=== PATIENT | male | born 1960 | race Caucasian/White ===

== ENCOUNTER → 2019-10-22 11:00 | Outpatient (CLI) | payer SELFPAY ==
--- NOTE | 2019-10-23 22:45 | HP.PCM_ITS ---
History and Physical History and Physical [facility] [place] Patient Name: Danny PuckettOB: 1960 From: NELDA STOVER PA-C DATE OF SURGERY: 11/05/2019 SCHEDULED PROCEDURE: 1. Right total hip arthroplasty 2. Left total hip arthroplasty HISTORY OF PRESENT ILLNESS: Preoperative history and physical exam was performed on October 23, 2019. This is a 59-year-old male who has had ongoing pain in bilateral hips for over one year. Pain is recently increased in May 2019. Patient states he has increased pain with going up and down stairs, walking, sitting, and driving. He does have start up pain. Pain can reach as high as a 7/10 with activity. Patient has difficult time getting in and out of chairs due to the pain in the hips. Pain is located in the anterior thigh, buttock with some radiating down the leg. He has difficult time with putting on his socks and shoes. He has tried conservative measures consisting of rest, ice, elevation with no relief in symptoms. He has attempted physician assistant primary care, [id number] ibuprofen with minimal relief. Patient does feel the right hip is slightly worse than the left hip. There was no trauma or injury in the past. Patient works as an occupational therapist. Patient denies any recent fevers, chills, infections, shortness of breath, or chest pain. We are obtaining surgical clearance from the primary care physician Dr. Doll. Patient has medical history pertinent for hypertension. After failing conservative measures and discussing treatment options with Dr. Joshua Bustamante, the patient does wish to proceed with a bilateral total hip arthroplasty. REVIEW OF SYSTEMS: ROS: Const: Denies change in appetite, fever and weight change. CV: Denies chest pain, heart murmur and irregular heartbeat. Resp: Denies cough, pneumonia, shortness of breath, tuberculosis and wheezing. GI: Denies constipation, diarrhea, heartburn, nausea, rectal itching, bloody stools and vomiting. : Denies incontinence. Musculo: Reports trouble walking, but denies leg swelling, pain and weakness. Skin: Denies Raynaud's, history of shingles and tattoo. Neuro: Denies ambulatory dysfunction, dizziness, numbness/tingling and tremor. Psych: Denies anxiety, insomnia and stress. Nba/Lymph: Denies anemia, bleeding/bruising tendency and past transfusion. Reviewed, no changes. PAST MEDICAL HISTORY: Advance Care Plan: No Advance Directives Effective Date: 07/03/2019 PMH: Medical Problems: Arthritis, High Blood Pressure Accidents: None Surgical Hx: None Anesthesia Complications: None Assistive Devices: Glasses Reviewed, no changes. SOCIAL HISTORY: SH: Marital: .Occupation: Certified Employee Relations Representative.Work Status: Currently Working - [employer].Hand Dominance: Right-handed. Personal Habits: Cigarette Use: Never Smoked Cigarettes.Smokeless Tobacco: Never Used Smokeless Tobacco.E-Cigarette Use: Never used.Alcohol: Occasionally.Drug Use: Denies Use.Enjoy Exercising: Never Exercises. Reviewed, no changes. VITALS: Ht: 69 Wt: 231lb Wt k.782 BMI: 34.1 BP: 162/96 Pulse: 90 Resp: 12 T: 98.0 T: 36.7C ALLERGIES: No Known Drug Allergy MEDICATIONS: Ibuprofen 600 mg 1po qd, Lisinopril 5 mg 2 po qd PRE-OP EXAM: General appearance:NORMAL Other: Eyes: Conjunctivae and lids: NORMAL Pupils: ERR Ears, Nose, Mouth, and Throat: NORMAL Other: Inspection of lips, teeth and gums: NORMAL Other: Neck: Examination of neck: no masses noted. Respiratory: Assessment of respiratory effort: NORMAL Other: Auscultation of lungs: clear to auscultation no wheezes, rhonchi or rales. Cardiovascular: Auscultation of heart: regular rate and rhythm, no murmurs, gallops or rubs. Exam of carotid arteries: NORMAL Other: Gastrointestinal: Exam of abdomen: soft, nontender, nondistended bowel sounds present. PHYSICAL EXAMINATION: Walks with an antalgic gait. Bilateral hips are cool to touch without erythema or signs of infection. Patient has obligatory external rotation with flexion on the right hip. Flexion 40, internal rotation 5, external rotation 20. Left hip flexion 45, internal rotation 10, external rotation 20. Sensation intact to li ght touch. IMAGING STUDIES: X-rays of the right hip reveal joint space narrowing, subchondral sclerosis, osteophyte formation consistent with severe stage IV osteoarthritis with femoral head collapse Series of left hip reveal joint space narrowing, subchondral sclerosis, osteophyte formation consistent with severe stage IV osteoarthritis with femoral head collapse. IMPRESSION: 1. 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 Hypertension PLAN: Dr. Joshua Bustamante did discuss and review with the patient all treatment options including surgical versus nonsurgical options. Patient does wish to proceed with the above-stated procedure. Potential risks, benefits, and complications of the procedure were discussed in detail including but not limited to , infection, nerve and blood vessel damage, persistent pain, numbness, tingling, paresthesias, blood clot, pulmonary embolism, and requirement for possible further surgery. The patient expressed full understanding and has no further questions for the doctor. Patient does agree to proceed with the above-stated procedure and has signed the surgery consent form. We discussed the current risks associated with COVID 19. This does include the risk of exposure while in the hospital. Patient was reassured local hospitals have low infection rates and are taking all necessary precautions to avoid exposure to patients. In addition, we discussed strategies that can be used to help limit exposure including those that limit the patient's time in the hospital. Also using strategies to limit the patient's need for continued inpatient services after being discharged from the hospital. Patient was notified that we will need to comply with any screening or testing the hospital wishes to perform or that surgery may be delayed for any positive results. This dictation was created using voice recognition software. Phonetic and/or grammatical errors may exist. ___ I have re-examined the patient. There are no clinical changes since date of exam. ___ See progress notes for changes. ___ Dictated on admission Date: Time: Signature:
--- NOTE | 2019-10-27 13:03 | EKG12_ITS ---
Test Reason : PREOP Blood Pressure : / mmHG Vent. Rate : 090 BPM Atrial Rate : 090 BPM P-R Int : 166 ms QRS Dur : 090 ms QT Int : 364 ms P-R-T Axes : 069 050 046 degrees QTc Int : 445 ms Normal sinus rhythm Normal ECG Confirmed by NGOZI WILKERSON, MCKINLEY ([id number]), editorial cartoonist REMY MEDEL ([id number]) on 10/28/2019 10:59:07 AM Referred By: DOC Confirmed By:MCKINLEY MELVIN MD
[2019-10-27 13:38] LABS: Absolute Lymphocyte Count 2.66 X10^3/uL (0.83-4.51); Absolute Neutrophil Count 4.5 X10^3/uL (2.0-7.7); Basophil# 0.07 X10^3/uL; Basophil% 0.9 % (0-1); Eosinophil# 0.07 X10^3/uL; Eosinophils% 0.9 % (0-5); Hematocrit 44.8 % (40-54); Hemoglobin 15.4 g/dL (13.0-16.5); Lymphocyte # 2.66 X10^3/ul (4.0); Lymphocyte % 33.5 % (19-41); Mean Corp Hgb Conc 34.4 g/dL (32-36); Mean Corpuscular Hgb 30.6 pg (27.0-32.0); Mean Corpuscular Volume 88.9 fL (80-94); Mean Platelet Vol. 9.7 fl (6.2-12.0); Monocyte# 0.66 X10^3/uL; Monocyte% 8.3 % (0-10); NRBC Flagged by Analyzer 0 % (0-5); Neutrophil # 4.46 X10^3/uL (2.7-7.7); Neutrophil % 56.3 % (47-70); Platelet Count 275 K/mm3 (150-450); RBC Distribution Width SD 38.9 fl (35.1-43.9); Red Blood Count 5.04 M/mm3 (4.6-6.2); White Blood Count 7.9 K/mm3 (4.4-11.0)
[2019-10-27 13:53] LABS: Anion Gap 8 (5-15); BUN 35 mg/dL (7-18); BUN/Creat Ratio 24.6 RATIO (10-20); Calcium,Total 9.8 mg/dL (8.5-10.1); Chloride 103 mmol/L (98-107); Creatinine, Serum 1.42 mg/dL (0.70-1.30); EST Glomerular Filtration Rate 54 mL/min (>60); Est Glom Filt Rate - Afr Amer 66 mL/min (>60); Glucose 263 mg/dL (74-106); Potassium 4.3 mmol/L (3.5-5.1); Sodium Level 136 mmol/L (136-145)
== END ==
PROVIDERS: PCP Nurse Practitioner Family; Visit Provider Specialist
DX: Z01.810 Encounter for preprocedural cardiovascular examination (principal)
CPT/HCPCS: 36415; 80048; 85025; 87077; 87081; 93005

== ENCOUNTER 2022-08-31 16:46 | Inpatient (IN) | payer OTHER, SELFPAY ==
[2022-08-31] VITALS (9 sets, daily range): BP systolic 127–147; BP diastolic 92–106; PULSE 86–111; RESP 15–22; TEMP 36.1–36.8; O2SAT 94–98; BMI 33.0; BMI 32.3
--- NOTE | 2022-08-31 17:12 | EKG12_ITS ---
Test Reason : CP Blood Pressure : / mmHG Vent. Rate : 109 BPM Atrial Rate : 109 BPM P-R Int : 188 ms QRS Dur : 100 ms QT Int : 348 ms P-R-T Axes : 074 034 083 degrees QTc Int : 468 ms Sinus tachycardia Nonspecific ST and T wave abnormality Abnormal ECG Confirmed by JUDY WILKERSON, MAHI ([id number]), assistant editor REMY MEDEL ([id number]) on 09/04/2022 11:44:07 AM Referred By: Confirmed By:ROSINA KIM MD
--- NOTE | 2022-08-31 17:28 | RAD_ITS ---
EXAM: XR CHEST, 1 VIEW CLINICAL INDICATION: chest pain TECHNIQUE: Frontal view of the chest. This report was created using [employer] report generation technology. COMPARISON: None. FINDINGS: LUNGS AND PLEURAL SPACES: Unremarkable. No consolidation or edema. No pneumothorax. No effusion. HEART: Unremarkable. Cardiac silhouette not enlarged. MEDIASTINUM: Central airways and mediastinal contour are unremarkable. BONES/JOINTS: Unremarkable. SOFT TISSUES: Unremarkable. RAD/Chest 1 View (Portable) IMPRESSION: No radiographic evidence of acute cardiopulmonary disease. Electronically Signed: Tre Donovan MD at 17:49 EDT ,
[2022-08-31 17:57] LABS: Absolute Lymphocyte Count 1.27 X10^3/uL (0.83-4.51); Absolute Neutrophil Count 4.3 X10^3/uL (2.0-7.7); Basophil# 0.07 X10^3/uL; Basophil% 1.1 % (0-1); Eosinophil# 0.08 X10^3/uL; Eosinophils% 1.3 % (0-5); Hematocrit 44.6 % (40-54); Hemoglobin 15.7 g/dL (13.0-16.5); Lymphocyte # 1.27 X10^3/ul (0.83-4.51); Lymphocyte % 20.7 % (19-41); Mean Corp Hgb Conc 35.2 g/dL (32-36); Mean Corpuscular Hgb 31.3 pg (27.0-32.0); Mean Platelet Vol. 10.2 fl (6.2-12.0); Monocyte# 0.45 X10^3/uL; Monocyte% 7.3 % (0-10); NRBC Flagged by Analyzer 0 % (0-5); Neutrophil # 4.27 X10^3/uL (2.7-7.7); Neutrophil % 69.4 % (47-70); Platelet Count 198 K/mm3 (150-450); RBC Distribution Width CV 12.1 % (11.6-14.6); RBC Distribution Width SD 39.1 fl (35.1-43.9); Red Blood Count 5.01 M/mm3 (4.6-6.2); White Blood Count 6.2 K/mm3 (4.4-11.0)
[2022-08-31 18:17] LABS: Anion Gap 4 (5-15); BUN 24 mg/dL (7-18); BUN/Creat Ratio 16.6 RATIO (10-20); Calcium,Total 9.4 mg/dL (8.5-10.1); Chloride 104 mmol/L (98-107); Creatinine, Serum 1.45 mg/dL (0.70-1.30); EST Glomerular Filtration Rate 53 mL/min (>60); Est Glom Filt Rate - Afr Amer 64 mL/min (>60); Estimated Creatinine Clearance 55.24 ml/min; Glucose 293 mg/dL (74-106); Potassium 3.9 mmol/L (3.5-5.1); Sodium Level 135 mmol/L (136-145); Troponin-I HS 230 pg/mL (3.0-78.0)
--- NOTE | 2022-08-31 18:26 | CT_ITS ---
STUDY: CTA Chest WO/W Contrast Injection 08/31/2022 7:40 PM REASON FOR EXAM: Male, 62 years old. Chest pain TECHNIQUE: The examination was performed with the intravenous administration of IV 100mL Isovue-370 contrast material. Post-processing of the angiographic images was performed, with axial imaging and 3D reconstruction. MIPS images were obtained. Individualized dose optimization techniques were used for this CT. COMPARISON: None. FINDINGS: There are degenerative changes of the shoulders. There is no pneumothorax. There is no demonstrated pleural abnormality. There are calcifications of the coronary arteries. Normal mediastinum. Normal hilar regions. Normal pulmonary arteries. There is atherosclerotic calcification of the aortic arch with tortuosity and elongation of the aortic arch and descending thoracic aorta. There are multi-level degenerative changes of the thoracic spine. There are no acute findings of the upper abdomen. CT/CTA Chest W/WO Contrast IMPRESSION: There are no acute findings. Electronically Signed: Tre Donovan MD at 19:41 EDT ,
[2022-08-31] MEDS: Aspirin 81 MG TAB.CHEW 324 MG PO (18:35)
[2022-08-31 20:02] LABS: Troponin-I HS 2937 pg/mL (3.0-78.0)
--- NOTE | 2022-08-31 20:10 | EDS_ITS ---
HPI History of Present Illness Chief Complaint: Chest Pain Onset/Context/Timing Onset: Today Activity at onset: sudden and exertion Timing: Continuous Quality: Positive for Heaviness, Sharp and Stabbing Location: Substernal Worsened By: Exertion Relieved By: - (Relaxation, deep breathing) Associated Symptoms: Positive for Dyspnea, Lightheadedness and Palpitations; Negative for Nausea, Vomiting, Diaphoresis, Cough, Fever or Acid Reflux Narrative Narrative: Patient presents with chest pain that began today approximately 2-1/2 hours prior to arrival. Patient states it came on rather suddenly. Patient states it has been constant. Patient describes it as sharp and stabbing but heavy at times. Patient states it is over the substernal area. Patient states it is worse with exertion. Patient states that he is able to try and relax and take some deep breaths which helps with the pain. Patient admits to some slight shortness of breath and lightheadedness with this. Patient also admits to some palpitations where he feels like his heart is racing. CVD Risk Factors: Positive for Hypertension, Diabetes and Family History 1' </=55; Negative for Hypercholesterolemia or Smoking PE Risk Factors: Negative for Recent Travel/Surgery, Recent Immobilization, Prior DVT or PE, Cancer or OCP + Smoking + >/=35 [facility] Medical History Hypertension Type 2 diabetes mellitus Home Medications Cholecalciferol (Vitamin D3) [Vitamin D3] 5,000 unit PO DAILY supplement 10/22/19 [History Last Taken 08/31/22] ascorbic acid (vitamin C) 500 mg tablet,extended release 2,000 mg PO DAILY supplement 10/22/19 [History Last Taken 08/31/22] lisinopril 10 mg tablet 10 mg PO DAILY bp 10/22/19 [History Last Taken 08/31/22] multivitamin with minerals 1 ea PO DAILY supplement 10/22/19 [History Last Taken 08/31/22] omega 9-tgy-hmm-fish oil 300 mg-1,000 mg capsule 2 ea PO DAILY supplement 10/22/19 [History Last Taken 08/31/22] turmeric root extract 500 mg capsule 1,000 mg PO DAILY supplement 10/22/19 [History Last Taken 08/31/22] aspirin 81 mg tablet,delayed release 81 mg PO DAILY HEART HEALTH 08/31/22 [History Last Taken 08/31/22] cimetidine 200 mg tablet (Tagamet HB) 200 mg PO DAILY 08/31/22 [History Last Taken 08/31/22] Allergy/AdvReac Type Severity Reaction Status Date / Time No Known Allergies Allergy Verified 08/31/22 16:57 Surgical History History of hip replacement Social History Smoking Status: Never smoker ROS ROS ED Constitutional Constitutional ED: Denies chills or fever(s) Eyes Eyes: Denies blurry vision or change in vision ENT ENT ED: Denies rhinorrhea or sore throat Cardiovascular Cardiovascular: Reports chest pain and palpitations Respiratory/Chest Respiratory/Chest: Reports dyspnea; Denies cough Gastrointestinal Gastrointestinal: Denies abdominal pain, nausea or vomiting Genitourinary Genitourinary ED: Denies dysuria or hematuria Musculoskeletal Musculoskeletal: Reports back pain; Denies neck pain Integumentary Denies abscess or rash Neurologic Neurologic: Denies headache(s) or weakness Allergic/Immunologic Allergic/Immunologic ED: Denies mouth swelling or urticaria EXAM Physical Exam Const Vital Signs: 08/31/22 16:47 08/31/22 17:00 08/31/22 17:03 Temperature 97 F L Temperature Source Temporal Pulse Rate 109 H 111 H Respiratory Rate 18 18 Respiratory Effort Normal Non-Labored Blood Pressure 147/94 H 146/93 H Blood Pressure Mean 111 110 Pulse Ox 98 97 Oxygen Delivery Method Room Air Room Air 08/31/22 17:25 08/31/22 18:00 08/31/22 19:11 Temperature Temperature Source Pulse Rate 94 94 Respiratory Rate 22 H 15 Respiratory Effort Blood Pressure 127/93 H 143/106 H Blood Pressure Mean 104 118 Pulse Ox 94 96 Oxygen Delivery Method Room Air Room Air Room Air 08/31/22 20:08 Temperature Temperature Source Pulse Rate 93 Respiratory Rate 22 H Respiratory Effort Blood Pressure 138/92 H Blood Pressure Mean 107 Pulse Ox 97 Oxygen Delivery Method Room Air Positive well nourished, well developed and obese General Appearance ED: well developed and NAD Nutritional Appearance: obese HEENT normocephalic and atraumatic Eyes PERRL and EOMs intact bilaterally Neck supple and no JVD Chest Wall palpation of chest normal Resp normal respiratory effort and clear to auscultation bilaterally Effort and Inspection: Negative for respiratory distress Cardio regular rate, regular rhythm and no murmurs GI normal to inspection, nondistended, normoactive bowel sounds, soft to palpation, non-tender and non-distended Extremity normal to inspection General Extremety ED: Negative for edema or tenderness General Extremity: Negative for edema Neuro oriented x3, CN's II-XII intact bilaterally and no sensory deficits noted Sensorium / Orientation: awake and alert Motor Exam: strength 5/5 throughout Psych mental status grossly normal Heart Score History: Moderately Suspicious ECG: Nonspecific Repolarization Age: >45 - <65 years Risk Factors: >/= 3 Risk Factors or History of CAD Troponin: >/=3 x Normal Limit Score: 7 MDM MDM MDM Narrative Medical decision making narrative: Differential diagnosis includes cardiac dysrhythmia, cardiac ischemia, pneumonia, pneumothorax, pulmonary embolism, electrolyte abnormality, and musculoskeletal pain. EKG will be obtained to assess for cardiac dysrhythmia and cardiac ischemia. Chest x-ray will be obtained to assess for pneumonia and pneumothorax. CBC will be obtained to assess for leukocytosis and anemia. Basic metabolic profile will be obtained to assess for electrolyte abnormality and renal function. High-sensitivity troponin will be obtained to assess for cardiac ischemia. 2-hour repeat high-sensitivity troponin will be obtained to assess for ongoing cardiac ischemia. CTA of the chest will be obtained to assess for pulmonary embolism. Lab Data Attestation: I reviewed the patient's lab results. Labs: Laboratory Results - last 24 hr 08/31/22 08/31/22 08/31/22 17:12 17:12 19:24 WBC 6.2 RBC 5.01 Hgb 15.7 Hct 44.6 MCV 89.0 MCH 31.3 MCHC 35.2 RDW Std Deviation 39.1 RDW Coeff of Allen 12.1 Plt Count 198 MPV 10.2 Immature Gran % (Auto) 0.200 Neut % (Auto) 69.4 Lymph % (Auto) 20.7 [place] % (Auto) 7.3 Eos % (Auto) 1.3 Baso % (Auto) 1.1 H Absolute Neuts (auto) 4.3 Absolute Lymphs (auto) 1.27 Nucleated RBC % 0 Sodium 135 L Potassium 3.9 Chloride 104 Carbon Dioxide 27.0 Anion Gap 4 L BUN 24 H Creatinine 1.45 H Estim Creat Clear Calc 55.24 Est GFR (MDRD) Af Amer 64 Est GFR (MDRD) Non-Af 53 L BUN/Creatinine Ratio 16.6 Glucose 293 H Calcium 9.4 Troponin I High Sens 230 H* 2937 H* Radiography Diagnostic Testing: Clinical Impression(s) from Imaging Studies Chest X-Ray 08/31/22 17:28 IMPRESSION: No radiographic evidence of acute cardiopulmonary disease. Electronically Signed: Tre Donovan MD at 17:49 EDT , Chest CTA 08/31/22 18:26 IMPRESSION: There are no acute findings. Electronically Signed: Tre Donovan MD at 19:41 EDT , EKG Initial EKG: Attestation: I personally reviewed and interpreted this EKG as follows: Interpretation: Sinus Tachycardia (109) and Non-Specific ST Changes Comments: EKG was obtained. On my independent interpretation, it showed a sinus tachycardia with a rate of 109. AK interval, QRS interval, and QTc intervals were all normal. Moran was normal. There are nonspecific ST-T wave changes in the lateral leads. Prior EKG tracings: available for review Prior: Changed (Compared to previous EKG dated 10/27/2019, the nonspecific ST-T wave changes in the lateral leads are new.) Follow-up EKG: Attestation: I personally reviewed and interpreted this EKG as follows: Interpretation: Sinus Rhythm (86) and No Acute Injury Pattern Prior EKG tracings: available for review Prior: Changed (Compared to previous EKG earlier today, the nonspecific ST-T wave changes have resolved.) Treatment and Re-Evaluation :: Patient was given aspirin. Patient is feeling better on reevaluation. Patient was advised of his findings. Patient was advised of the need for hospita lization. Patient was advised that he would need to be started on a heparin drip. Patient is agreeable with all of this. Case was discussed with the hospitalist. He will admit the patient to his service. Patient understood and was agreeable with the plan. All questions were answered. Critical Care Time Critical Care Time: Yes Critical care time (excluding procedures): 30-74 minutes (33), Including time spent:, Discussing w/Patient &/or Family/Natural Remedy Consultant, Arranging Admission or Transfer and Performing Direct Patient Care at Bedside Discharge Plan Dx/Rx/DC Orders Clinical Impression: Non-STEMI (non-ST elevated myocardial infarction), Hypertension Disposition Disposition: Acute Care Hospital [facility]
--- NOTE | 2022-08-31 20:15 | EKG12_ITS ---
Test Reason : DYSRHYTHMIA Blood Pressure : / mmHG Vent. Rate : 086 BPM Atrial Rate : 086 BPM P-R Int : 182 ms QRS Dur : 096 ms QT Int : 374 ms P-R-T Axes : 056 014 087 degrees QTc Int : 447 ms Normal sinus rhythm Normal ECG Confirmed by JUDY WILKERSON, MAHI ([id number]), technical writer and editor REMY MEDEL ([id number]) on 09/04/2022 11:44:22 AM Referred By: AGNIESZKA Confirmed By:ROSINA KIM MD
--- NOTE | 2022-08-31 20:15 | HP.PCM.HOS_ITS ---
HPI - General General Date of Admission: 08/31/22 Date of Service: 08/31/22 Chief Complaint: Chest pain HPI Narrative SHAY OSBORNE, is a 62 M with a significant history of hypertension; diabetes mellitus; and hyperlipidemia who presents to the emergency department with sudden onset excruciating substernal chest pain. His pain severity was 8 or 9 on a scale of 1-10. He described the pain as sharp and burning. The pain worsens with exertion and improved with relaxation and concentrating on his breathing. The pain was non radiating. Associated with symptoms is lightheadedness and difficulty breathing. Patient called his and then paramedics were called. When paramedics arrived his blood pressure was about 180/114. Paramedics gave him oxygen. Subsequently patient came to the hospital with his and not the paramedics. His pain gradually improved to a mild pressure. Patient reported that his brother had a heart attack when the brother was age 55 and required a stent. Of note 3 weeks ago patient had what he thought was indigestion. He changed food and resumed taking Tagamet which he had taken many years ago and he began to feel better. FORMERLY [facility] Medical History Hypertension Type 2 diabetes mellitus Home Medications Cholecalciferol (Vitamin D3) [Vitamin D3] 5,000 unit PO DAILY supplement 10/22/19 [History Last Taken 08/31/22] ascorbic acid (vitamin C) 500 mg tablet,extended release 2,000 mg PO DAILY supplement 10/22/19 [History Last Taken 08/31/22] lisinopril 10 mg tablet 10 mg PO DAILY bp 10/22/19 [History Last Taken 08/31/22] multivitamin with minerals 1 ea PO DAILY supplement 10/22/19 [History Last Taken 08/31/22] omega 2-czn-kqp-fish oil 300 mg-1,000 mg capsule 2 ea PO DAILY supplement 10/22/19 [History Last Taken 08/31/22] turmeric root extract 500 mg capsule 1,000 mg PO DAILY supplement 10/22/19 [History Last Taken 08/31/22] aspirin 81 mg tablet,delayed release 81 mg PO DAILY HEART HEALTH 08/31/22 [History Last Taken 08/31/22] cimetidine 200 mg tablet (Tagamet HB) 200 mg PO DAILY 08/31/22 [History Last Taken 08/31/22] Allergy/AdvReac Type Severity Reaction Status Date / Time No Known Allergies Allergy Verified 08/31/22 16:57 Family History (Updated 08/31/22 @ 20:[address] Christ Choi MD) Other Diabetes Heart disease Surgical History History of hip replacement Social History Smoking Status: Never smoker ROS ROS Narrative Pertinent positives and pertinent negatives as noted in HPI. All other systems were reviewed and are negative Vital Signs Vital Signs Vital Signs: 08/31/22 16:47 08/31/22 17:00 08/31/22 17:03 Temperature 97 F L Temperature Source Temporal Pulse Rate 109 H 111 H Respiratory Rate 18 18 Respiratory Effort Normal Non-Labored Blood Pressure 147/94 H 146/93 H Blood Pressure Mean 111 110 Pulse Ox 98 97 Oxygen Delivery Method Room Air Room Air 08/31/22 17:25 08/31/22 18:00 08/31/22 19:11 Temperature Temperature Source Pulse Rate 94 94 Respiratory Rate 22 H 15 Respiratory Effort Blood Pressure 127/93 H 143/106 H Blood Pressure Mean 104 118 Pulse Ox 94 96 Oxygen Delivery Method Room Air Room Air Room Air 08/31/22 20:08 Temperature Temperature Source Pulse Rate 93 Respiratory Rate 22 H Respiratory Effort Blood Pressure 138/92 H Blood Pressure Mean 107 Pulse Ox 97 Oxygen Delivery Method Room Air Weight Weight: 104.6 kg Body Mass Index (BMI) 33.0 Physical Exam Narrative Physical exam: General: Well-nourished, well-developed. Head: Normocephalic, atraumatic, no tenderness Eyes: Vision is grossly intact. EOMI ENT, no trauma, moist mucous membranes, no rhinorrhea Neck: Nontender, No thyromegaly. CVS: Regular rate and rhythm. S1-S2 present. No murmur, gallop or rub. Respiratory : clear to auscultation bilaterally, chest wall nontender Abdomen: Soft, nontender, nondistended, normal bowel sounds, no masses : Deferred Back: Nontender, no CVA tenderness, no midline spinal tenderness, deformities, step-offs Extremities: Nontender full range of motion, no trauma Skin: Normal color, no trauma, abrasions Neuro: Alert, oriented, cranial nerves II through XII grossly intact. Psychiatry: Normal mood. Normal affect. Not depressed. Not anxious. Results Lab / Micro Data Result Diagrams: 08/31/22 17:12 08/31/22 17:12 Labs: Laboratory Results - last 24 hr 08/31/22 17:12: WBC 6.2, RBC 5.01, Hgb 15.7, Hct 44.6, MCV 89.0, MCH 31.3, MCHC 35.2, RDW Std Deviation 39.1, RDW Coeff of Allen 12.1, Plt Count 198, MPV 10.2, Immature Gran % (Auto) 0.200, Neut % (Auto) 69.4, Lymph % (Auto) 20.7, [place] % (Auto) 7.3, Eos % (Auto) 1.3, Baso % (Auto) 1.1 H, Absolute Neuts (auto) 4.3, Absolute Lymphs (auto) 1.27, Nucleated RBC % 0 08/31/22 17:12: Sodium 135 L, Potassium 3.9, Chloride 104, Carbon Dioxide 27.0, Anion Gap 4 L, BUN 24 H, Creatinine 1.45 H, Estim Creat Clear Calc 55.24, Est GFR (MDRD) Af Amer 64, Est GFR (MDRD) Non-Af 53 L, BUN/Creatinine Ratio 16.6, Glucose 293 H, Calcium 9.4, Troponin I High Sens 230 H* 08/31/22 19:24: Troponin I High Sens 2937 H* Radiology Impression Chest X-Ray 08/31/22 17:28 IMPRESSION: No radiographic evidence of acute cardiopulmonary disease. Electronically Signed: Tre Donovan MD at 17:49 EDT , Chest CTA 08/31/22 18:26 IMPRESSION: There are no acute findings. Electronically Signed: Tre Donovan MD at 19:41 EDT , Assessment & Plan Assessment/Plan (1) Non-STEMI (non-ST elevated myocardial infarction): (2) Hypertension: (3) Diabetes: (4) HLD (hyperlipidemia): PLAN: Plan NSTEMI On presentation patient had chest pain. Initial high-sensitivity troponin was 230. It trended to 2,937. Continue to trend. Place on a monitored bed at progressive care unit Actual CXR image was independently visualized. No acute cardiopulmonary process was noted. Agrees with radiologist interpretation. Chest CTA showed no acute findings. Actual EKG tracing was independently visualized. EKG tracing initially showed ST depressions in leads aVL, I, V5 and V6 that was new from previous. Repeat EKG showed T depressions. Received full dose aspirin on presentation. ASA 81 mg p.o. daily continued. SL NTG 0.4 mg prn as needed for chest pain ordered Anticoagulation: Started on heparin bolus and drip at emergency department and continued. Stat EKG as needed for chest pain Cardiology consult. Hypertension Blood pressure is not within goal Lisinopril continued. In the setting of ACS metoprolol ordered. Trend blood pressure and adjust blood pressure medications. Diabetes mellitus Patient with hyperglycemia on presentation Reportedly he was previously on metformin and one other antidiabetic medications but now his only use diet to control his diabetes. While in the hospital on monitor Accu-Cheks Correction scale insulin ordered. Hyperlipidemia Reports history of hyperlipidemia but intolerance to statin with leg weakness and aching for which reason statin was stopped. Discussed patient that we will check lipid panel and if lipid is still elevated he should consider Zetia. Lipid panel ordered. CKD stage II Stable Trend BMP. Hyponatremia Mild Trend. DVT prophylaxis: Not indicated as patient has been started on heparin drip for non-STEMI Charges/Coding Visit Charges Inpatient E&M: 69321 Init Hosp L3
[2022-08-31] MEDS: HEPARIN/D5w 25,000 UNITS 25,000 UNITS/250 ML IV.SOLN. 15 UNITS CONT INF (20:30)
[2022-08-31] MEDS: Heparin Injection (Vial) 5,000 UNIT/ML VIAL 8000 UNIT IV (20:30)
[2022-08-31 20:42] LABS: Prothrombin Time (Protime)PT. 12.4 SECONDS (11.7-14.9)
[2022-08-31 20:43] LABS: Partial Thromboplast Time 28.2 Seconds (24.1-36.2)
--- NOTE | 2022-08-31 21:02 | EKG12_ITS ---
Test Reason : AM EKG Blood Pressure : / mmHG Vent. Rate : 075 BPM Atrial Rate : 075 BPM P-R Int : 192 ms QRS Dur : 094 ms QT Int : 416 ms P-R-T Axes : 035 030 117 degrees QTc Int : 464 ms Normal sinus rhythm Nonspecific T wave abnormality Prolonged QT Abnormal ECG When compared with ECG of 31-AUG-2022 21:41, MANUAL COMPARISON REQUIRED, DATA IS UNCONFIRMED Confirmed by JUDY WILKERSON, MAHI ([id number]), mapping editor REMY MEDEL ([id number]) on 09/04/2022 11:50:26 AM Referred By: Steph Confirmed By:ROSINA KIM MD
--- NOTE | 2022-08-31 21:13 | ED.RN ---
THIS RN TOOK PT TO PCU. HEPARIN DRIP CHECKED WITH PRATEEK STEWART AT THE BEDSIDE. HEPARIN RUNNING AT 15 ML/HR. IV SITE INTACT, PATENT, RUNNING.
[2022-08-31] MEDS: 0.9% Normal Saline 1,000 ML 75 ML IV (21:41)
[2022-08-31] MEDS: Insulin Lispro 100 UNIT/ML INSULN.PEN SC (21:42)
[2022-08-31] MEDS: Metoprolol Tartrate 25 MG Tablet 12.5 MG PO (21:43)
[2022-08-31 23:10] LABS: Bedside Glucose 167 mg/dL (74-106)
[2022-08-31 23:56] LABS: Troponin-I HS 7075 pg/mL (3.0-78.0)
[2022-09-01] VITALS (12 sets, daily range): BP systolic 104–155; BP diastolic 65–95; PULSE 68–91; RESP 16–20; TEMP 36.3–36.7; O2SAT 93–98
[2022-09-01 02:39] LABS: Absolute Lymphocyte Count 2.25 X10^3/uL (0.83-4.51); Absolute Neutrophil Count 4.4 X10^3/uL (2.0-7.7); Basophil# 0.08 X10^3/uL; Basophil% 1.1 % (0-1); Eosinophil# 0.18 X10^3/uL; Eosinophils% 2.4 % (0-5); Hemoglobin 14.8 g/dL (13.0-16.5); Lymphocyte # 2.25 X10^3/ul (0.83-4.51); Lymphocyte % 29.6 % (19-41); Mean Corp Hgb Conc 34.4 g/dL (32-36); Mean Corpuscular Hgb 30.7 pg (27.0-32.0); Mean Corpuscular Volume 89.2 fL (80-94); Mean Platelet Vol. 9.2 fl (6.2-12.0); Monocyte# 0.66 X10^3/uL; Monocyte% 8.7 % (0-10); NRBC Flagged by Analyzer 0 % (0-5); Neutrophil # 4.41 X10^3/uL (2.7-7.7); Neutrophil % 58.1 % (47-70); Platelet Count 211 K/mm3 (150-450); RBC Distribution Width CV 12.3 % (11.6-14.6); Red Blood Count 4.82 M/mm3 (4.6-6.2); White Blood Count 7.6 K/mm3 (4.4-11.0)
[2022-09-01 03:34] LABS: Partial Thromboplast Time 199.1 Seconds (24.1-36.2)
[2022-09-01 04:21] LABS: Anion Gap 5 (5-15); BUN 20 mg/dL (7-18); BUN/Creat Ratio 18.9 RATIO (10-20); Calcium,Total 9.3 mg/dL (8.5-10.1); Chloride 107 mmol/L (98-107); Cholesterol 183 mg/dL (200); Creatinine, Serum 1.06 mg/dL (0.70-1.30); EST Glomerular Filtration Rate 75 mL/min (>60); Est Glom Filt Rate - Afr Amer 91 mL/min (>60); Estimated Creatinine Clearance 75.56 ml/min; Glucose 189 mg/dL (74-106); High Density Lipoprotein 55 mg/dL; Sodium Level 137 mmol/L (136-145); Triglycerides 126 mg/dL; Very Low Density Lipoprotein 25 mg/dL (5-40)
--- NOTE | 2022-09-01 05:55 | ECHOCS_ITS ---
Reason For Study: chest pain Procedure This was a 2D Doppler, Color Flow transthoracic echocardiogram. The study was technically difficult. Contrast injection was performed. Exam performed portable in patient room. Left Ventricle Normal LV size. Left ventricular systolic function is lower limits of normal. The estimated ejection fraction is 45 %. Anterior Wren : Hypokinetic. Mid-Inferior: Severely Hypokinetic. Right Ventricle Normal RV size. Normal systolic function. Atria Normal left atrium. Normal right atrium. Mitral Valve Normal mitral valve. Tricuspid Valve Normal tricuspid valve. Aortic Valve Trisinus/trileaflet aortic valve. Pulmonic Valve Normal pulmonic valve. Great Vessels Normal aortic root. The pulmonary artery is normal size. Normal inferior vena cava. Pericardium/Pleural No pericardial effusion. Medication Diluted definity 2ml given slow IV push to enhance endocardial definition. MMode/2D Measurements & Calculations LVIDd: 5.4 cm IVSd: 0.96 cm Ao root diam: 3.3 cm LVIDs: 4.6 cm LVPWd: 0.95 cm FS: 13.4 % LAV(MOD-bp): 30.4 ml LVAd ap4: 35.5 cm2 SV(MOD-sp4): 43.8 ml LAV(MOD-bp) Indexed: 13.9 ml/m2 LVLd ap4: 8.4 cm LAV(MOD-sp2): 42.5 ml EDV(MOD-sp4): 122.7 ml LAV(MOD-sp4): 22.7 ml EDV(sp4-el): 126.6 ml LVAs ap4: 25.6 cm2 LVLs ap4: 7.0 cm ESV(MOD-sp4): 78.9 ml ESV(sp4-el): 79.7 ml EF(MOD-sp4): 35.7 % EF(sp4-el): 37.0 % SV(sp4-el): 46.8 ml LA A4 area: 10.8 cm2 RA A4 area: 7.1 cm2 Time Measurements MV dec time: 0.17 sec Doppler Measurements & Calculations MV E max shawn: 78.3 cm/sec Lat Peak E' Shawn: 8.4 cm/sec Med Peak E' Shawn: 6.0 cm/sec MV A max shawn: 84.5 cm/sec E/E' lat: 9.3 E/E' med: 13.0 MV E/A: 0.93 MV V2 max: 91.6 cm/sec Ao V2 max: 87.7 cm/sec MV max P.4 mmHg MV dec slope: 457.6 cm/sec2 Ao max P.1 mmHg MV V2 mean: 56.9 cm/sec Ao V2 mean: 65.2 cm/sec MV mean P.5 mmHg Ao mean P.9 mmHg MV V2 VTI: 27.4 cm Ao V2 VTI: 20.6 cm AV (velocity ratio): 0.79 LV V1 max: 71.7 cm/sec PA V2 max: 76.1 cm/sec LV V1 max P.1 mmHg PA V2 mean: 49.1 cm/sec LV V1 mean P.2 mmHg LV V1 mean: 51.2 cm/sec LV V1 VTI: 16.2 cm ECHO/Echo Complete W/ Contrast Interpretation Summary Normal LV size. Left ventricular systolic function is lower limits of normal. The estimated ejection fraction is 45 %. Anterior Wren : Hypokinetic Mid-Inferior: Severely Hypokinetic. Ordering Physician: Christ Choi Referring Physician: MAGDALENA GONZALEZ Performed By: Nelida Rebolledo RCS
--- NOTE | 2022-09-01 05:55 | EKG12_ITS ---
Test Reason : CP Admission Blood Pressure : / mmHG Vent. Rate : 093 BPM Atrial Rate : 093 BPM P-R Int : 184 ms QRS Dur : 092 ms QT Int : 364 ms P-R-T Axes : 060 024 084 degrees QTc Int : 452 ms Normal sinus rhythm Nonspecific T wave abnormality Abnormal ECG When compared with ECG of 27-OCT-2019 13:12, No significant change was found Confirmed by JUDY WILKERSON, MAHI ([id number]), managing editor REMY MEDEL ([id number]) on 09/04/2022 11:50:37 AM Referred By: Steph Confirmed By:ROSINA KIM MD
--- NOTE | 2022-09-01 06:14 | PN.HOSP_ITS ---
Reason for Visit Reason for Visit: Diagnoses Type 2 diabetes mellitus without complications (08/31/22) Hyperlipidemia, unspecified (08/31/22) Essential (primary) hypertension (08/31/22) Non-ST elevation (NSTEMI) myocardial infarction (08/31/22) Subjective Subjective Evaluated prior to cardiac cath, patient reported pain still had some of the [place] [facility] pain but it was better than previously. Did not have any other significant complaints at the time of evaluation. Objective Data Objective Data Vital Signs: Vital Signs Temp Pulse Resp BP Pulse Ox O2 Del Method 97.4 F L 82 20 H 135/85 H 94 Room Air 09/01/22 04:04 09/01/22 04:04 09/01/22 04:04 09/01/22 04:04 09/01/22 04:04 09/01/22 04:04 Oxygen Delivery Method Room Air Weight: 102.3 kg Body Mass Index (BMI) 32.3 Intake & Output: Intake and Output for Last 24 Hours 08/30/22 08/31/22 09/01/22 23:59 23:59 23:59 Intake Total 408.7 / 408.7 Balance 408.7 / 408.7 Lab / Micro Data Result Diagrams: 09/01/22 02:30 09/01/22 02:30 Labs: Laboratory Results - last 24 hr 08/31/22 17:12: WBC 6.2, RBC 5.01, Hgb 15.7, Hct 44.6, MCV 89.0, MCH 31.3, MCHC 35.2, RDW Std Deviation 39.1, RDW Coeff of Allen 12.1, Plt Count 198, MPV 10.2, Immature Gran % (Auto) 0.200, Neut % (Auto) 69.4, Lymph % (Auto) 20.7, [place] % (Auto) 7.3, Eos % (Auto) 1.3, Baso % (Auto) 1.1 H, Absolute Neuts (auto) 4.3, Absolute Lymphs (auto) 1.27, Nucleated RBC % 0 08/31/22 17:12: Sodium 135 L, Potassium 3.9, Chloride 104, Carbon Dioxide 27.0, Anion Gap 4 L, BUN 24 H, Creatinine 1.45 H, Estim Creat Clear Calc 55.24, Est GFR (MDRD) Af Amer 64, Est GFR (MDRD) Non-Af 53 L, BUN/Creatinine Ratio 16.6, Glucose 293 H, Calcium 9.4, Troponin I High Sens 230 H* 08/31/22 19:24: Troponin I High Sens 2937 H* 08/31/22 20:24: PT 12.4, INR 1.0, APTT 28.2 08/31/22 21:40: POC Glucose 167 H 08/31/22 23:05: Troponin I High Sens 7075 H* 09/01/22 02:30: WBC 7.6, RBC 4.82, Hgb 14.8, Hct 43.0, MCV 89.2, MCH 30.7, MCHC 34.4, RDW Std Deviation 40.0, RDW Coeff of Allen 12.3, Plt Count 211, MPV 9.2, Immature Gran % (Auto) 0.100, Neut % (Auto) 58.1, Lymph % (Auto) 29.6, [place] % (Auto) 8.7, Eos % (Auto) 2.4, Baso % (Auto) 1.1 H, Absolute Neuts (auto) 4.4, Absolute Lymphs (auto) 2.25, Nucleated RBC % 0 09/01/22 02:30: Sodium 137, Potassium 4.0, Chloride 107, Carbon Dioxide 25.0, Anion Gap 5, BUN 20 H, Creatinine 1.06, Estim Creat Clear Calc 75.56, Est GFR (MDRD) Af Amer 91, Est GFR (MDRD) Non-Af 75, BUN/Creatinine Ratio 18.9, Glucose 189 H, Calcium 9.3, Triglycerides 126, Cholesterol 183, LDL Cholesterol 103, VLDL Cholesterol 25, HDL Cholesterol 55 09/01/22 02:30: APTT 199.1 H* Radiography Diagnostic Testing: Radiology Impression Chest X-Ray 08/31/22 17:28 IMPRESSION: No radiographic evidence of acute cardiopulmonary disease. Electronically Signed: Tre Donovan MD at 17:49 EDT Reading Location ID and State: [facility] / [place] , Service support , Chest CTA 08/31/22 18:26 IMPRESSION: There are no acute findings. Electronically Signed: Tre Donovan MD at 19:41 EDT , Physical Exam Narrative General: Alert, oriented, no apparent distress HEENT: Atraumatic, normocephalic Eyes: Anicteric, normal conjunctiva, extraocular movements grossly intact Neck: Supple Respiratory: Clear to auscultation bilaterally, normal respiratory effort Cardiovascular: Regular rate and rhythm GI: Soft, nontender, nondistended Extremities: No edema Musculoskeletal: Moving all extremities Neuro: No overt focal neurological deficits Skin: No rashes appreciated Psych: Cooperative Assessment & Plan Assessment/Plan (1) Non-STEMI (non-ST elevated myocardial infarction): (2) Hypertension: (3) Diabetes: (4) HLD (hyperlipidemia): PLAN: Plan #NSTEMI/severe triple-vessel coronary artery disease On presentation patient had chest pain. Initial high-sensitivity troponin was 230. It trended to 2,937. Continue to trend. Place on a monitored bed at progressive care unit Actual CXR image was independently visualized. No acute cardiopulmonary process was noted. Agrees with radiologist interpretation. Chest CTA showed no acute findings. Actual EKG tracing was independently visualized. EKG tracing initially showed ST depressions in leads aVL, I, V5 and V6 that was new from previous. Repeat EKG showed T depressions. Received full dose aspirin on presentation. ASA 81 mg p.o. daily continued. SL NTG 0.4 mg prn as needed for chest pain ordered Anticoagulation: Started on heparin bolus and drip at emergency department and continued. Stat EKG as needed for chest pain Cardiology consult. -09/01: Patient went for heart cath morning of 09/01 and was found to have severe triple-vessel disease with mildly reduced left ventricular systolic function. He will need to undergo CABG. He was accepted at [facility] and is awaiting transfer. Not on statin due to history of intolerance, continue Lo vaza. #Hypertension Blood pressure is not within goal Lisinopril continued. In the setting of ACS metoprolol ordered. Trend blood pressure and adjust blood pressure medications. -09/01: On lisinopril 10, metoprolol tartrate 12.5 twice daily, uptitrate medications as tolerated #Diabetes mellitus type II Patient with hyperglycemia on presentation Reportedly he was previously on metformin and one other antidiabetic medications but now his only use diet to control his diabetes. While in the hospital on monitor Accu-Cheks Correction scale insulin ordered. -09/01: Continue sliding scale insulin and Accu-Cheks #CKD stage II Stable Trend BMP. #DVT ppx: SCDs Mayuri Jackson MD Time spent in the patient's overall evaluation,decision-making process, review of diagnostic data, adjustment of management, discussion with other providers, nursing nursing and ancillary staff involved in patient's care documentation, 30 minutes Charges/Coding Visit Charges Inpatient E&M: 56126 Subs Hosp L2
[2022-09-01] MEDS: Metoprolol Tartrate 25 MG Tablet 12.5 MG PO (06:49)
[2022-09-01] MEDS: Aspirin E.C. 81 MG Tablet PO (06:49)
[2022-09-01] MEDS: Lisinopril 10 MG Tablet PO (06:50)
[2022-09-01 07:11] LABS: Bedside Glucose 213 mg/dL (74-106)
--- NOTE | 2022-09-01 07:17 | NURSING ---
Heparin drip stopped per Dr. Rae verbal order.
--- NOTE | 2022-09-01 07:24 | PCM.CONS.C ---
Assessment & Plan Assessment/Plan (1) Non-STEMI (non-ST elevated myocardial infarction): PLAN: He presents with a non-ST elevation myocardial infarction. He does have cardiac risk factors. The plan at this time would be to proceed with a left heart catheterization to assess his coronary anatomy and depending on the findings further recommendations will be made. Risk benefits alternatives have been explained to him he understands and agrees to proceed . Continue aspirin Continue high intensity statin Continue low-dose beta-lissette \ Addendum: Cardiac catheterization demonstrated normal left main coronary artery. Left anterior descending artery with high-grade mid segment stenosis. Left circumflex artery with high-grade stenosis of the obtuse marginal branch and mid segment. Totally occluded right coronary artery with [id number] collaterals. Reduced left ventricular systolic ejection fraction estimated to be 45%. Based on the above angiographic findings I would recommend referral for coronary artery bypass graft surgery. (2) Hypertension: PLAN: Patient has a history of hypertension and my recommendation is for the patient to have an appropriate dose of lisinopril for better control of his blood pressure. Beta-lissette would also be added as needed. (3) HLD (hyperlipidemia): PLAN: We will continue high intensity statin. Thank you for allowing me to participate in the care of your patient. Please don't hesitate to call if any issues arise. HPI Consult Data Date of Consult: 09/01/22 HPI Narrative HPI Narrative: SHAY OSBORNE, is a 62 M who presents to the emergency room complaining of chest discomfort. He says that he had been having this over the last 2 weeks but thought that it was indigestion and could have this abated by eating small amounts. Yesterday it appeared to be a lot more severe and so he decided to present to the emergency room. He does have a history of hypertension, hyperlipidemia, diabetes mellitus and has a strong family history of coronary artery disease. He denies any diaphoresis nausea dizziness or pedal edema. On arrival to the emergency room he was noted to be stable blood pressures and EKG were unremarkable. Cardiac enzymes were abnormal and cardiology was called for further evaluation and management. [facility] Medical History Hypertension Type 2 diabetes mellitus Home Medications Cholecalciferol (Vitamin D3) [Vitamin D3] 5,000 unit PO DAILY supplement 10/22/19 [History Last Taken 08/31/22] ascorbic acid (vitamin C) 500 mg tablet,extended release 2,000 mg PO DAILY supplement 10/22/19 [History Last Taken 08/31/22] lisinopril 10 mg tablet 10 mg PO DAILY bp 10/22/19 [History Last Taken 08/31/22] multivitamin with minerals 1 ea PO DAILY supplement 10/22/19 [History Last Taken 08/31/22] omega 8-hxi-qfr-fish oil 300 mg-1,000 mg capsule 2 ea PO DAILY supplement 10/22/19 [History Last Taken 08/31/22] turmeric root extract 500 mg capsule 1,000 mg PO DAILY supplement 10/22/19 [History Last Taken 08/31/22] aspirin 81 mg tablet,delayed release 81 mg PO DAILY HEART HEALTH 08/31/22 [History Last Taken 08/31/22] cimetidine 200 mg tablet (Tagamet HB) 200 mg PO DAILY 08/31/22 [History Last Taken 08/31/22] Allergy/AdvReac Type Severity Reaction Status Date / Time No Known Allergies Allergy Verified 08/31/22 16:57 Family History (Updated 08/31/22 @ 20:[address] Christ Choi MD) Other Diabetes Heart disease Surgical History History of hip replacement Social History Smoking Status: Never smoker ROS Constitutional Constitutional: Denies fever(s) or weight loss Eyes Eyes: Reports systems reviewed and no addt'l complaints, except as documented ENT HEENT: Reports systems reviewed and no addt'l complaints, except as documented Cardiovascular Cardiovascular: Reports chest pain at rest and chest pain with activity; Denies dyspnea at rest, dyspnea on exertion, edema, palpitations or paroxysmal nocturnal dyspnea Respiratory/Chest Respiratory/Chest: Denies dyspnea on exertion, productive cough, shortness of breath at rest or shortness of breath with exertion Gastrointestinal Gastrointestinal: Denies change in bowel habits, nausea, vomiting or weight changes Genitourinary Genitourinary: Denies difficulty urinating Musculoskeletal Musculoskeletal: Denies joint stiffness or muscle weakness Integumentary Integumentary: Denies lesions Neurologic Neurologic: Denies dizziness or syncope Psychiatric Psychiatric: Denies anxiety Endocrine Endocrinology: Denies excessive sweating or fatigue Hematologic/Lymphatic Hematologic/Lymphatic: Denies anemia Allergic/Immunologic Allergic/Immunologic: Denies seasonal rhinorrhea Physical Exam Const alert, oriented x3 and no apparent distress General Appearance: cooperative HEENT hearing grossly normal bilaterally Head and Scalp: atraumatic Eyes EOMs intact bilaterally Neck General: normal visual inspection Chest inspection of chest normal and palpation of chest normal Resp normal respiratory effort Auscultation: clear to auscultation bilaterally Cardio regular rate, regular rhythm, S1 normal heart sound and S2 normal heart sound Jugular Venous Distention: JVD GI normal to inspection, nondistended, normoactive bowel sounds Extremity normal capillary refill and no pedal edema Peripheral Pulses: Yes pulses 2+ throughout and femoral pulses present Skin no rashes or lesions noted Neuro oriented x3 and CN's II-XII intact bilaterally Psych Appearance: grossly normal and appropriate Risk Stratification Risk Stratification Applicable: Yes Age >/= 65: No >/= 3 CAD Risk Factors (HTN, HLD, DM, family hx of CAD, or current smoker): Yes Aspirin Use in the Past 7 Days: No Severe Angina (>/= episodes in 24 hours): Yes EKG ST Changes >/= 0.5mm: No Positive Cardiac Marker: Yes MISTY Risk Stratification Score: 3 MISTY % Risk: 13% Risk Objective Data Vital Signs: Vital Signs Temp Pulse Resp BP Pulse Ox O2 Del Method 97.8 F 82 20 H 155/95 H 96 Room Air 09/01/22 06:44 09/01/22 06:49 09/01/22 06:44 09/01/22 06:44 09/01/22 06:44 09/01/22 06:44 Oxygen Delivery Method Room Air Weight: 225 lb 8.526 oz Body Mass Index (BMI) 32.3 Intake & Output: Intake and Output for Last 24 Hours 08/30/22 08/31/22 09/01/22 23:59 23:59 23:59 Intake Total 427.1 / 427.1 Balance 427.1 / 427.1 Lab / Micro Data Result Diagrams: 09/01/22 02:30 09/01/22 02:30 Labs: Laboratory Results - last 24 hr 08/31/22 17:12: WBC 6.2, RBC 5.01, Hgb 15.7, Hct 44.6, MCV 89.0, MCH 31.3, MCHC 35.2, RDW Std Deviation 39.1, RDW Coeff of Allen 12.1, Plt Count 198, MPV 10.2, Immature Gran % (Auto) 0.200, Neut % (Auto) 69.4, Lymph % (Auto) 20.7, [place] % (Auto) 7.3, Eos % (Auto) 1.3, Baso % (Auto) 1.1 H, Absolute Neuts (auto) 4.3, Absolute Lymphs (auto) 1.27, Nucleated RBC % 0 08/31/22 17:12: Sodium 135 L, Potassium 3.9, Chloride 104, Carbon Dioxide 27.0, Anion Gap 4 L, BUN 24 H, Creatinine 1.45 H, Estim Creat Clear Calc 55.24, Est GFR (MDRD) Af Amer 64, Est GFR (MDRD) Non-Af 53 L, BUN/Creatinine Ratio 16.6, Glucose 293 H, Calcium 9.4, Troponin I High Sens 230 H* 08/31/22 19:24: Troponin I High Sens 2937 H* 08/31/22 20:24: PT 12.4, INR 1.0, APTT 28.2 08/31/22 21:40: POC Glucose 167 H 08/31/22 23:05: Troponin I High Sens 7075 H* 09/01/22 02:30: WBC 7.6, RBC 4.82, Hgb 14.8, Hct 43.0, MCV 89.2, MCH 30.7, MCHC 34.4, RDW Std Deviation 40.0, RDW Coeff of Allen 12.3, Plt Count 211, MPV 9.2, Immature Gran % (Auto) 0.100, Neut % (Auto) 58.1, Lymph % (Auto) 29.6, [place] % (Auto) 8.7, Eos % (Auto) 2.4, Baso % (Auto) 1.1 H, Absolute Neuts (auto) 4.4, Absolute Lymphs (auto) 2.25, Nucleated RBC % 0 09/01/22 02:30: Sodium 137, Potassium 4.0, Chloride 107, Carbon Dioxide 25.0, Anion Gap 5, BUN 20 H, Creatinine 1.06, Estim Creat Clear Calc 75.56, Est GFR (MDRD) Af Amer 91, Est GFR (MDRD) Non-Af 75, BUN/Creatinine Ratio 18.9, Glucose 189 H, Calcium 9.3, Triglycerides 126, Cholesterol 183, LDL Cholesterol 103, VLDL Cholesterol 25, HDL Cholesterol 55 09/01/22 02:30: APTT 199.1 H* 09/01/22 06:47: POC Glucose 213 H Rhythm Strip Rhythm Strip: Sinus Rhythm Cardiology Labs/Tests 08/31/22 17:12: WBC 6.2, RBC 5.01, Hgb 15.7, Hct 44.6, MCV 89.0, MCH 31.3, MCHC 35.2, Plt Count 198, MPV 10.2, Immature Gran % (Auto) 0.200, Neut % (Auto) 69.4, Lymph % (Auto) 20.7, [place] % (Auto) 7.3, Eos % (Auto) 1.3, Baso % (Auto) 1.1 H, Absolute Neuts (auto) 4.3, Nucleated RBC % 0 08/31/22 17:12: Sodium 135 L, Potassium 3.9, Chloride 104, Carbon Dioxide 27.0, Anion Gap 4 L, BUN 24 H, Creatinine 1.45 H, Est GFR (MDRD) Af Amer 64, Est GFR (MDRD) Non-Af 53 L, BUN/Creatinine Ratio 16.6, Glucose 293 H, Calcium 9.4 08/31/22 20:24: PT 12.4, INR 1.0, APTT 28.2 09/01/22 02:30: WBC 7.6, RBC 4.82, Hgb 14.8, Hct 43.0, MCV 89.2, MCH 30.7, MCHC 34.4, Plt Count 211, MPV 9.2, Immature Gran % (Auto) 0.100, Neut % (Auto) 58.1, Lymph % (Auto) 29.6, [place] % (Auto) 8.7, Eos % (Auto) 2.4, Baso % (Auto) 1.1 H, Absolute Neuts (auto) 4.4, Nucleated RBC % 0 09/01/22 02:30: Sodium 137, Potassium 4.0, Chloride 107, Carbon Dioxide 25.0, Anion Gap 5, BUN 20 H, Creatinine 1.06, Est GFR (MDRD) Af Amer 91, Est GFR (MDRD) Non-Af 75, BUN/Creatinine Ratio 18.9, Glucose 189 H, Calcium 9.3, Triglycerides 126, Cholesterol 183, LDL Cholesterol 103, VLDL Cholesterol 25, HDL Cholesterol 55 09/01/22 02:30: APTT 199.1 H* Rhythm: EKG: ECHO: Stress Test: Cardiac Cath: PCI: CT Surgery: Holter monitor: EPS: PPM: CXR: Chest CT Scan: Radiography Diagnostic Testing: Radiology Impression Chest X-Ray 08/31/22 17:28 IMPRESSION: No radiographic evidence of acute cardiopulmonary disease. Electronically Signed: Tre Donovan MD at 17:49 EDT , Chest CTA 08/31/22 18:26 IMPRESSION: There are no acute findings. Electronically Signed: Tre Donovan MD at 19:41 EDT ,
--- NOTE | 2022-09-01 07:39 | NURSING ---
Report called to [employer] PRATEEK Millan.
--- NOTE | 2022-09-01 08:32 | CASEMGMT ---
Tertiary facilities in-network with patient's insurance: [facility], [facility], [facility], [facility], , [facility], [facility], [facility], [place]
--- NOTE | 2022-09-01 08:36 | CL.D_ITS ---
Patient Name: SHAY OSBORNE Study Date: 09/01/2022 Performing: Aaron Rae MD Ht: 70 inches 177.8 cm : 1960 Wt: 225.53 lbs 102.3 kg Age: 62 Gender: male BSA: 2.2 PROCEDURE(S) PERFORMED DC01-(60141)LHC/COR/LV CLINICAL PROFILE AND INDICATIONS Indications: Worsening Angina Heart Failure: None Stress/Imaging Stress/Image Study Performed: No Angina Classification Anginal Classification w/in 2 Weeks: CCS III CAD Presentations: Non-STEMI. Symptom onset Date/Time: 08/31/22 CONCLUSIONS Severe triple-vessel disease with mildly reduced left ventricular systolic function RECOMMENDATIONS Surgery consult for coronary revascularization DESCRIPTION OF PROCEDURE The patient arrived to the procedure lab. The risks and benefits of the procedure as well as a full description of our services here and current unavailability of surgical backup were fully explained to the patient and/or their significant other prior to the catheterization. The Timeout was completed, verifying the correct patient and procedure. The patient's procedural site was prepped and draped in the usual fashion. Local anesthetic was given subcutaneously to right radial region with Lidocaine 2%. Using a modified Seldinger technique, arterial access was obtained via the right radial artery, a 6Fr sheath was inserted. Right Coronary Artery selective angiography was then performed in multiple views using a 5 Fr. 4.0 [place] catheter. Left Coronary Artery selective angiography was performed in multiple views using a 5 Fr. 4.0 [place] catheter. Left Ventriculography was performed in GOODE projection using a 5 Fr. [place] catheter. LV to AO pullback pressures were then recorded.The arterial sheath was pulled and a TR Band was applied for hemostasis w/ 9ml air CORONARY ANGIOGRAPHY DOMINANCE: Right Dominant LEFT HEART ASSESSMENT Abnormal LV wall motion. Anterior Hypokinesis - Mild. Inferior Mid Hypokinesis - Severe LEFT MAIN: Mild calcification, No significant disease noted LEFT ANTERIOR DESCENDING ARTERY: Medium size vessel with the first diagonal branch and after that a 95% stenotic lesion noted in the distal mild disease. CIRCUMFLEX ARTERY: Nondominant but large size vessel. First obtuse marginal branch has a 95% stenosis. The mid circumflex artery has an 80% stenosis in the proximal has an 80% stenosis. Left to right collaterals are seen filling the distal right coronary artery system. RIGHT CORONARY ARTERY: dominant right coronary artery which appears to be totally occluded in the midsegment. Left to right collaterals are seen. COLLATERAL FLOW: Collateral flow from Left to Right COMPLICATIONS No Complications PROCEDURE MEDICATIONS Versed 1 mg IV Fentanyl 50 mcg IV Versed 1 mg IV Versed 1 mg IV Oxygen: 2 L/min via nasal cannula Heparin given IA 09/01/2022 08:17:40 Verapamil 2.5mg, Ntg 100mcgs, 3000 units of Heparin given IA 09/01/2022 08:17:40 IV Bolus: .9 NaCl 300 ml total 09/01/2022 08:22:06 SUMMARY OF HEMODYNAMIC DATA Time AIR REST ECG 08:00:07 AO 102/70 (85) SA 08:20:55 LV 90/8, 15 08:26:32 LV 93/9, 16 08:26:40 LV 0/21, 0 08:27:15 LV 94/11, 20 08:27:23 LVp 97/13, 22 08:27:28 AOp 103/62 (80) 08:27:35 Signed By Aaron Rae MD On 09/01/2022 08:35:46 Aaron Rae MD
[2022-09-01] MEDS: Ascorbic Acid 500 MG Tablet 2000 MG PO (09:36)
[2022-09-01] MEDS: Cholecalciferol (Vit D3) 125 MCG CAPSULE (5,000 UNITS) PO (09:36)
[2022-09-01] MEDS: Omega-3 Acid Ethyl Esters 1 GM Capsule 2 GM PO (09:37)
[2022-09-01] MEDS: Multivitamins,Ther W-Minerals Tablet 1 TABLET PO (09:37)
[2022-09-01] MEDS: Famotidine 20 MG Tablet PO (09:37)
[2022-09-01] MEDS: 0.9% Saline Lock 10 ML Syringe IV (09:38)
[2022-09-01] MEDS: 0.9% Normal Saline 1,000 ML 75 ML IV (09:56)
[2022-09-01 12:30] LABS: Partial Thromboplast Time 29.9 Seconds (24.1-36.2)
[2022-09-01 13:00] LABS: Bedside Glucose 151 mg/dL (74-106)
--- NOTE | 2022-09-01 16:11 | NURSING ---
Report called to [facility] HLU nurse PRATEEK Gaffney. Family at bedside updated on pt's transfer and given bed assignment.
--- NOTE | 2022-09-01 16:15 | DS.PCM_ITS ---
Providers Date of Admission: 08/31/22 Date of Discharge: 09/01/22 Primary Care Physician: BANDAR Linton Consultations 08/31/22 21:02 Consult: Cardiology Routine Consulting Provider: Aaron Rae Reason for Consult: Chest Pain EMERGENT Consult: No MD Notified: Yes Date Notified: 08/31/22 Time Notified: 20:13 Method of Notification: Text Method of Consult:: In-Person Reason For Visit: NON-STEMI Diagnosis Discharge Diagnosis (1) Non-STEMI (non-ST elevated myocardial infarction): Status: Acute Code(s): I21.4 - Non-ST elevation (NSTEMI) myocardial infarction (2) Hypertension: Status: Chronic Code(s): I10 - Essential (primary) hypertension (3) Diabetes: Status: Acute Code(s): E11.9 - Type 2 diabetes mellitus without complications (4) HLD (hyperlipidemia): Status: Acute Code(s): E78.5 - Hyperlipidemia, unspecified Plan #NSTEMI/severe triple-vessel coronary artery disease #Hypertension #Diabetes mellitus type II #CKD stage II Medications at Discharge Home Medications Cholecalciferol (Vitamin D3) [Vitamin D3] 5,000 unit PO DAILY supplement 10/22/19 ascorbic acid (vitamin C) 500 mg tablet,extended release 2,000 mg PO DAILY supplement 10/22/19 lisinopril 10 mg tablet 10 mg PO DAILY bp 10/22/19 multivitamin with minerals 1 ea PO DAILY supplement 10/22/19 omega 0-oid-nmj-fish oil 300 mg-1,000 mg capsule 2 ea PO DAILY supplement 10/22/19 turmeric root extract 500 mg capsule 1,000 mg PO DAILY supplement 10/22/19 aspirin 81 mg tablet,delayed release 81 mg PO DAILY [facility] [place] 08/31/22 cimetidine 200 mg tablet (Tagamet HB) 200 mg PO DAILY 08/31/22 Hospital Course Procedures - (Cardiac cath, TTE) Summary of Care Provided Minutes Spent on Discharge: 21 Hospital Course: Isaac Velez is a 62-year-old male with a history of hypertension, diabetes mellitus who presented to [facility] 08/31 with excruciating chest pain. He had an elevated troponin and a convincing cardiac story so he was placed on a heparin bolus and drip in the emergency department which was continued and cardiology was consulted. He had an echocardiogram that showed an EF of 45% with regional wall motion abnormalities. He was taken to heart cath 08/24 and noted to have severe triple-vessel disease. Cardiology recommended transfer for surgery evaluation. Patient accepted at [facility]. Physical Exam Narrative General: Alert, oriented, no apparent distress HEENT: Atraumatic, normocephalic Eyes: Anicteric, normal conjunctiva, extraocular movements grossly intact Neck: Supple Respiratory: Clear to auscultation bilaterally, normal respiratory effort Cardiovascular: Regular rate and rhythm GI: Soft, nontender, nondistended Extremities: No edema Musculoskeletal: Moving all extremities Neuro: No overt focal neurological deficits Skin: No rashes appreciated Psych: Cooperative Weight / BMI Weight Weight: 102.3 kg Body Mass Index (BMI) 32.3 ABG / Lab / Microbiology Data Result Diagrams: 09/01/22 02:30 09/01/22 02:30 Laboratory: Laboratory Results - last 24 hr 08/31/22 17:12: WBC 6.2, RBC 5.01, Hgb 15.7, Hct 44.6, MCV 89.0, MCH 31.3, MCHC 35.2, RDW Std Deviation 39.1, RDW Coeff of Allen 12.1, Plt Count 198, MPV 10.2, Immature Gran % (Auto) 0.200, Neut % (Auto) 69.4, Lymph % (Auto) 20.7, [place] % (Auto) 7.3, Eos % (Auto) 1.3, Baso % (Auto) 1.1 H, Absolute Neuts (auto) 4.3, Absolute Lymphs (auto) 1.27, Nucleated RBC % 0 08/31/22 17:12: Sodium 135 L, Potassium 3.9, Chloride 104, Carbon Dioxide 27.0, Anion Gap 4 L, BUN 24 H, Creatinine 1.45 H, Estim Creat Clear Calc 55.24, Est GFR (MDRD) Af Amer 64, Est GFR (MDRD) Non-Af 53 L, BUN/Creatinine Ratio 16.6, Glucose 293 H, Calcium 9.4, Troponin I High Sens 230 H* 08/31/22 19:24: Troponin I High Sens 2937 H* 08/31/22 20:24: PT 12.4, INR 1.0, APTT 28.2 08/31/22 21:40: POC Glucose 167 H 08/31/22 23:05: Troponin I High Sens 7075 H* 09/01/22 02:30: WBC 7.6, RBC 4.82, Hgb 14.8, Hct 43.0, MCV 89.2, MCH 30.7, MCHC 34.4, RDW Std Deviation 40.0, RDW Coeff of Allen 12.3, Plt Count 211, MPV 9.2, Immature Gran % (Auto) 0.100, Neut % (Auto) 58.1, Lymph % (Auto) 29.6, [place] % (Auto) 8.7, Eos % (Auto) 2.4, Baso % (Auto) 1.1 H, Absolute Neuts (auto) 4.4, Absolute Lymphs (auto) 2.25, Nucleated RBC % 0 09/01/22 02:30: Sodium 137, Potassium 4.0, Chloride 107, Carbon Dioxide 25.0, Anion Gap 5, BUN 20 H, Creatinine 1.06, Estim Creat Clear Calc 75.56, Est GFR (MDRD) Af Amer 91, Est GFR (MDRD) Non-Af 75, BUN/Creatinine Ratio 18.9, Glucose 189 H, Calcium 9.3, Triglycerides 126, Cholesterol 183, LDL Cholesterol 103, VLDL Cholesterol 25, HDL Cholesterol 55 09/01/22 02:30: APTT 199.1 H* 09/01/22 06:47: POC Glucose 213 H 09/01/22 11:57: APTT 29.9 09/01/22 12:18: POC Glucose 151 H Radiography Diagnostic Testing: Radiology Impression Chest X-Ray 08/31/22 17:28 IMPRESSION: No radiographic evidence of acute cardiopulmonary disease. Electronically Signed: Tre Donovan MD at 17:49 EDT , Chest CTA 08/31/22 18:26 IMPRESSION: There are no acute findings. Electronically Signed: Tre Donovan MD at 19:41 EDT , Echocardiogram 09/01/22 05:55 Interpretation Summary Normal LV size. Left ventricular systolic function is lower limits of normal. The estimated ejection fraction is 45 %. Anterior [place] : Hypokinetic Mid-Inferior: Severely Hypokinetic. Ordering Physician: Christ Choi Referring Physician: MAGDALENA DOLL Performed By: Nelida Rebolledo RCS D/C Instructions Discharge Diet: - (DASH diet) Discharge Activity: Return to Normal Activity Meaningful Use Info Meaningful Use Diagnoses (Choose all that apply): AMI AMI/Post PCI/Angioplasty Aspirin given w/in 24hrs of arrival?: Yes ASA at discharge?: Yes Statins at discharge?: No Reason statins not ordered:: Allergy Jeremie/ARB at discharge?: Yes Beta Jackelyn at discharge?: Yes Done w/ Acute VA measure.: Yes Discharge Plan Admission Admit Date/Time: 08/31/22 20:05 Primary Reason for Your Visit: Chest pain Attending Provider: Mayuri Jackson Primary Care Provider: Magdalena Doll NP Consulting Providers: Aaron Rae ; Christ Choi Instructions Patient Instructions: CAD Discharge Orders/Prescriptions Prescriptions: No Action lisinopril 10 MG tablet 10 mg PO DAILY ascorbic acid (vitamin C) 500 MG tablet extended release 2,000 mg PO DAILY omega 3-fxu-vdr-fish oil 1 EACH capsule 2 ea PO DAILY turmeric root extract 500 MG capsule 1,000 mg PO DAILY Cholecalciferol (Vitamin D3) [Vitamin D3] 5,000 UNIT capsule 5,000 unit PO DAILY multivitamin with minerals 1 EACH tablet 1 ea PO DAILY cimetidine [Tagamet HB] 200 mg Tablet 200 mg PO DAILY Rx Instructions: administer with meals aspirin 81 mg Tablet,Delayed Release (Dr/Ec) 81 mg PO DAILY Referrals / Follow Up: Magdalena Doll H[employer]MER MILL OPERATOR, HAMMER MILL OPERATOR-C [Primary Care Provider] - Katy Lawson PA [Med Staff - Adv Practice Prof] - 09/15/22 1:00 pm Disposition Disposition (needs filled in before D/C Order can be placed): Acute Care Hospital Charges/Coding Visit Charges Inpatient E&M: 38360 Disch Hosp
== END 2022-09-01 16:41 | disposition short-term general hospital (02) | DRG 281 ==
LOC: ED 20:23 → PCU 20:32
PROVIDERS: Admitting Provider Hospitalist; Emergency Provider Emergency Medicine; PCP Nurse Practitioner Family; Visit Provider Internal Medicine
DX: I21.4 Non-ST elevation (NSTEMI) myocardial infarction (principal); E87.1 Hypo-osmolality and hyponatremia; E11.22 Type 2 diabetes mellitus with diabetic chronic kidney disease; I25.119 Atherosclerotic heart disease of native coronary artery with unspecified angina pectoris; E11.65 Type 2 diabetes mellitus with hyperglycemia; I12.9 Hypertensive chronic kidney disease with stage 1 through stage 4 chronic kidney disease, or unspecified chronic kidney disease; N18.2 Chronic kidney disease, stage 2 (mild); E78.5 Hyperlipidemia, unspecified; E66.9 Obesity, unspecified; Z68.33 Body mass index [BMI] 33.0-33.9, adult; Z79.82 Long term (current) use of aspirin; Z79.899 Other long term (current) drug therapy
CPT/HCPCS: 36415; 71045; 71275; 80048; 80061; 82962; 84484; 85025; 85610; 85730; 93005; 93306; 93458; 99152; 99153; 99285; J7030; J7040; Q9957; Q9967; A4216; C1769; C1894; C8929

== ENCOUNTER → 2023-03-13 | Outpatient (CLI) | payer BC, SELFPAY ==
[2023-03-13 13:17] LABS: Bacteria 0 SEEN /hpf (None Seen); Mucous, Urine 0 SEEN /hpf (<or=2+); Red Blood Cells-Urine 0 SEEN /hpf (0-5); Squamous Epithelial Cells - UA 0 SEEN /hpf (0-5)
[2023-03-13 13:29] LABS: Color, Urine Yellow (Yellow); Glucose, Dipstick Normal (Normal); Hematocrit 41.6 % (40-54); Hemoglobin 14.5 g/dL (13.0-16.5); Ketone-Dipstick 5 mg/dl (Negative); Leukocyte Esterase-Dipstick 25 /ul (Negative); Mean Corp Hgb Conc 34.9 g/dL (32-36); Mean Corpuscular Hgb 30.4 pg (27.0-32.0); Mean Corpuscular Volume 87.2 fL (80-94); Mean Platelet Vol. 9.1 fl (6.2-12.0); Nitrite-Dipstick Negative (Negative); Occult Blood-Urine Negative /ul (Negative); Platelet Count 227 K/mm3 (150-450); Protein-Dipstick 30 mg/dl (Negative); RBC Distribution Width CV 13.2 % (11.6-14.6); RBC Distribution Width SD 41.9 fl (35.1-43.9); Red Blood Count 4.77 M/mm3 (4.6-6.2); Specific Gravity, Urine 1.025 (1.002-1.030); Urine Bilirubin Dipstick Negative (Negative); Urine Clarity Clear (Clear); Urine Urobilinogen 1 mg/dl (Normal); White Blood Count 6.6 K/mm3 (4.4-11.0)
[2023-03-13 13:45] LABS: White Blood Cells 0-5 SEEN /hpf (0-5)
[2023-03-13 14:07] LABS: AST(SGOT) 22 U/L (15-37); Alanine Aminotransfer ALT/SGPT 34 U/L (16-61); Albumin, Serum 3.8 g/dL (3.2-5.0); Alkaline Phosphatase 98 U/L (45-117); Anion Gap 5 (5-15); BUN 24 mg/dL (7-18); BUN/Creat Ratio 18.3 RATIO (10-20); CRP < 2.90 mg/L (0.0-3.0); Calcium,Total 9.1 mg/dL (8.5-10.1); Chloride 107 mmol/L (98-107); Creatinine, Serum 1.31 mg/dL (0.70-1.30); EST Glomerular Filtration Rate 59 mL/min (>60); Est Glom Filt Rate - Afr Amer 71 mL/min (>60); Glucose 166 mg/dL (74-106); Potassium 4.1 mmol/L (3.5-5.1); Protein, Total 7.8 g/dL (6.4-8.2); Sodium Level 138 mmol/L (136-145); Thyroid Stim Hormone (TSH) 0.94 uIU/mL (0.358-3.74)
== END | disposition home or self-care (01) ==
LOC: LAB 13:14
PROVIDERS: PCP Nurse Practitioner Family; Referring Provider Physician Assistant Medical; Visit Provider Physician Assistant Medical
DX: R82.998 Other abnormal findings in urine (principal); E11.9 Type 2 diabetes mellitus without complications; R53.83 Other fatigue; R53.1 Weakness; M79.10 Myalgia, unspecified site; T46.6X5A Adverse effect of antihyperlipidemic and antiarteriosclerotic drugs, initial encounter; R42 Dizziness and giddiness
CPT/HCPCS: 36415; 80053; 81001; 84443; 85027; 86140

== ENCOUNTER → 2023-04-07 | Outpatient (CLI) | payer BC, SELFPAY ==
[2023-04-07 08:18] LABS: Hematocrit 44.3 % (40-54); Hemoglobin 15.3 g/dL (13.0-16.5); Mean Corp Hgb Conc 34.5 g/dL (32-36); Mean Corpuscular Hgb 30.4 pg (27.0-32.0); Mean Corpuscular Volume 87.9 fL (80-94); Mean Platelet Vol. 9.4 fl (6.2-12.0); Platelet Count 218 K/mm3 (150-450); RBC Distribution Width SD 41.6 fl (35.1-43.9); Red Blood Count 5.04 M/mm3 (4.6-6.2)
[2023-04-07 09:19] LABS: AST(SGOT) 25 U/L (15-37); Alanine Aminotransfer ALT/SGPT 33 U/L (16-61); Albumin, Serum 3.8 g/dL (3.2-5.0); Alkaline Phosphatase 93 U/L (45-117); Anion Gap 5 (5-15); BUN 25 mg/dL (7-18); BUN/Creat Ratio 20.3 RATIO (10-20); Chloride 109 mmol/L (98-107); Cholesterol 139 mg/dL (200); Creatinine, Serum 1.23 mg/dL (0.70-1.30); EST Glomerular Filtration Rate 63 mL/min (>60); Est Glom Filt Rate - Afr Amer 77 mL/min (>60); Globulin 3.7 g/dL (2.2-4.2); Glucose 152 mg/dL (74-106); High Density Lipoprotein 51 mg/dL; Potassium 4.1 mmol/L (3.5-5.1); Protein, Total 7.5 g/dL (6.4-8.2); Sodium Level 138 mmol/L (136-145); Triglycerides 134 mg/dL; Very Low Density Lipoprotein 27 mg/dL (5-40)
[2023-04-07 11:23] LABS: Microalbumin,Random Urine 14.2 mg/L (NO RANGE EST.)
== END | disposition home or self-care (01) ==
LOC: LAB 07:11
PROVIDERS: PCP Nurse Practitioner Family; Referring Provider Nurse Practitioner Family; Visit Provider Nurse Practitioner Family
DX: Z00.00 Encounter for general adult medical examination without abnormal findings (principal); E11.69 Type 2 diabetes mellitus with other specified complication; E66.9 Obesity, unspecified
CPT/HCPCS: 36415; 80053; 80061; 82043; 85027

== ENCOUNTER → 2023-12-13 | Outpatient (CLI) | payer BC, SELFPAY ==
[2023-12-13 17:29] LABS: AST(SGOT) 26 U/L (15-37); Alanine Aminotransfer ALT/SGPT 37 U/L (16-61); Alkaline Phosphatase 97 U/L (45-117); Anion Gap 6 (5-15); BUN 27 mg/dL (7-18); BUN/Creat Ratio 18.1 RATIO (10-20); Bilirubin, Direct 0.26 mg/dL (0.00-0.30); Calcium,Total 9.4 mg/dL (8.5-10.1); Chloride 107 mmol/L (98-107); Cholesterol 195 mg/dL (200); Creatinine, Serum 1.49 mg/dL (0.70-1.30); EST Glomerular Filtration Rate 51 mL/min (>60); Est Glom Filt Rate - Afr Amer 61 mL/min (>60); Globulin 3.6 g/dL (2.2-4.2); Glucose 129 mg/dL (74-106); High Density Lipoprotein 57 mg/dL; Potassium 4.1 mmol/L (3.5-5.1); Protein, Total 7.6 g/dL (6.4-8.2); Sodium Level 139 mmol/L (136-145); Triglycerides 105 mg/dL; Very Low Density Lipoprotein 21 mg/dL (5-40)
== END | disposition home or self-care (01) ==
PROVIDERS: PCP Nurse Practitioner Family; Referring Provider Internal Medicine Cardiovascular Disease; Visit Provider Internal Medicine Cardiovascular Disease
DX: E78.5 Hyperlipidemia, unspecified (principal)
CPT/HCPCS: 36415; 80048; 80061; 80076

== ENCOUNTER → 2025-03-23 | Outpatient (CLI) | payer OTHER, SELFPAY ==
--- NOTE | 2025-03-23 14:46 | ECHOD_ITS ---
Reason For Study Reason For Study: CAD/ASHD Procedure This was a 2D Doppler, Color Flow transthoracic echocardiogram. Exam performed in department. Left Ventricle Normal LV size. Left ventricular systolic function is normal. The left ventricular ejection fraction is 45 %. No regional wall motion abnormalities noted. Right Ventricle Normal RV size. Normal systolic function. Atria Normal left atrium. Normal right atrium. Mitral Valve Normal mitral valve. Tricuspid Valve Normal tricuspid valve. Aortic Valve Normal aortic valve. Pulmonic Valve Normal pulmonic valve. Great Vessels Normal aortic root. The pulmonary artery is normal size. Normal inferior vena cava. Pericardium/Pleural No pericardial effusion. MMode/2D Measurements & Calculations LVIDd: 5.1 cm IVSd: 0.83 cm Ao root diam: 3.3 cm LVIDs: 3.9 cm LVPWd: 0.96 cm FS: 22.5 % LAV(MOD-bp): 47.1 ml LVAd ap4: 31.1 cm2 SV(MOD-sp4): 44.5 ml LAV(MOD-bp) Indexed: 20.9 ml/m2 LVLd ap4: 7.7 cm SI(MOD-sp4): 19.7 ml/m2 LAV(MOD-sp2): 50.2 ml EDV(MOD-sp4): 106.4 ml LAV(MOD-sp4): 42.2 ml EDV(sp4-el): 106.0 ml LVAs ap4: 22.1 cm2 LVLs ap4: 7.0 cm ESV(MOD-sp4): 61.9 ml ESV(sp4-el): 58.6 ml EF(MOD-sp4): 41.8 % EF(sp4-el): 44.7 % SV(sp4-el): 47.3 ml LA A4 area: 16.8 cm2 LA dimension(2D): 4.6 cm RA A4 area: 15.5 cm2 TAPSE: 1.5 cm Time Measurements MV dec time: 0.16 sec Doppler Measurements & Calculations MV E max shawn: 99.5 cm/sec Lat Peak E' Shawn: 9.9 cm/sec Med Peak E' Shawn: 6.9 cm/sec MV A max shawn: 80.8 cm/sec E/E' lat: 10.0 E/E' med: 14.4 MV E/A: 1.2 MV V2 max: 110.7 cm/sec MV P1/2t max shawn: 111.6 cm/sec Ao V2 max: 100.7 cm/sec MV max P.9 mmHg MV P1/2t: 51.4 msec Ao max P.1 mmHg MV V2 mean: 72.7 cm/sec Ao V2 mean: 71.0 cm/sec MV mean P.4 mmHg MV dec slope: 636.5 cm/sec2 Ao mean P.3 mmHg MV V2 VTI: 26.6 cm MVA(P1/2t): 4.3 cm2 Ao V2 VTI: 22.5 cm AV (velocity ratio): 0.76 LV V1 max: 72.4 cm/sec PA V2 max: 83.5 cm/sec LV V1 max P.1 mmHg LV V1 mean P.4 mmHg LV V1 mean: 56.2 cm/sec LV V1 VTI: 17.1 cm ECHO/Echo Complete Interpretation Summary Normal LV size. Left ventricular systolic function is normal. No regional wall motion abnormalities noted. The left ventricular ejection fraction is 45 %. Ordering Physician: Aaron Rae Referring Physician: Aaron Rae Performed By: Vinh Young RCS
== END | disposition home or self-care (01) ==
LOC: CVS 14:43
PROVIDERS: PCP Nurse Practitioner Family; Referring Provider Internal Medicine Cardiovascular Disease; Visit Provider Internal Medicine Cardiovascular Disease
DX: I25.10 Atherosclerotic heart disease of native coronary artery without angina pectoris (principal); Z95.1 Presence of aortocoronary bypass graft
CPT/HCPCS: 93306